=== PATIENT | male | born 1950 | race Hispanic/Latino ===

== ENCOUNTER 2021-11-28 18:43 | Inpatient (IN) | payer OTHER, MEDICARE ==
[~2021-11-28] VITALS: Ht 162.6 cm; Wt 56.5 kg
[2021-11-28 20:01] LABS: BASOPHILS % (AUTO) 0.1 % (0.0-5.0); EOSINOPHILS % (AUTO) 0.1 % (0.0-8.0); HEMATOCRIT 40.8 % (42-54); LYMPHOCYTES % (AUTO) 1.6 % (21.0-51.0); MEAN CORPUSCULAR HGB CONC 34.1 g/dL (32.0-36.0); MEAN CORPUSCULAR VOLUME 87.9 fL (79-99); MONOCYTES % (AUTO) 4.1 % (3.0-13.0); NEUTROPHILS % (AUTO) 93.5 % (40.0-77.0); PLATELET COUNT (AUTO) 371 K/uL (130-400); RED BLOOD CELL COUNT(AUTO) 4.64 MIL/uL (4.50-6.20); RED CELL DISTRIBUTION WIDTH 17.1 % (11.0-15.5); WHITE BLOOD COUNT (AUTO) 17.5 K/uL (4.8-10.8)
[2021-11-28 20:19] LABS: CREATININE 2.5 mg/dL (0.5-1.5); POTASSIUM 5.6 mmol/L (3.5-5.1); TOTAL PROTEIN, SERUM 6.6 g/dL (6.0-8.3)
[2021-11-28 20:25] LABS: ALBUMIN 2.1 g/dL (3.5-5.0)
[2021-11-28 20:36] LABS: APPEARANCE,URINE CLEAR (CLEAR); BILIRUBIN,URINE 1 mg/dL (NEGATIVE); COLOR,URINE DARK-YELLOW (YELLOW); GLUCOSE, URINE (UA) NEGATIVE (NEGATIVE); KETONES,URINE 20 mg/dL (NEGATIVE); LEUKOCYTE ESTERASE ,URINE 25 Leu/uL (NEGATIVE); NITRATE,URINE NEGATIVE (NEGATIVE); OCCULT BLOOD,URINE NEGATIVE (NEGATIVE); PROTEIN,URINE 10 mg/dL (NEGATIVE); UROBILINOGEN,URINE 12 mg/dL (0.2-1.0)
[2021-11-28 20:44] LABS: BACTERIA,URINE RARE /HPF (None Seen); MUCUS,URINE MOD LPF (None Seen); SQUAMOUS EPITHELIAL CELL,UR RARE /HPF (0-2)
[2021-11-28] MEDS ORDERED: 0.9%NACL 1000ML 1,000 ML IV ONE (21:00)
[2021-11-28] MEDS ORDERED: ACETAMINOPHEN 325 MG TAB PO PRN (22:00)
[2021-11-28] MEDS ORDERED: IPRATROPIUM/ALBUTEROL SULFATE 3 ML SOLUTION IH PRN (22:00)
[2021-11-28] MEDS ORDERED: 0.9%NACL 1000ML 1,000 ML IV SCH (22:00)
[2021-11-28] MEDS ORDERED: ONDANSETRON 4MG INJ IV PRN (22:00)
[2021-11-28] MEDS ORDERED: DEXTROSE 50%-WATER 50 ML DISP.SYRIN IV ONE (22:00)
[2021-11-28] MEDS ORDERED: NITROGLYCERIN 0.4 MG SL TAB SL PRN (22:00)
[2021-11-28] MEDS ORDERED: INSULIN HUMULIN R 100 UNIT/ML 3ML IV ONE (22:00)
[2021-11-28] MEDS: CEFTRIAXONE 1G VIAL IV SCH (22:22)
[2021-11-28] MEDS: 0.9%NACL 1000ML 1,000 ML IV SCH (23:33)
[2021-11-29] MEDS ORDERED: 0.9%NACL 1000ML 1,000 ML IV SCH
[2021-11-29] MEDS: ACETAMINOPHEN 325 MG TAB PO PRN (02:03)
[2021-11-29 05:30] VITALS: BP 103/69
[2021-11-29 05:33] LABS: BASOPHILS % (AUTO) 0.1 % (0.0-5.0); HEMATOCRIT 37.2 % (42-54); LYMPHOCYTES % (AUTO) 3.5 % (21.0-51.0); MEAN CORPUSCULAR HEMOGLOBIN 29.7 pg (27.0-33.0); MEAN CORPUSCULAR HGB CONC 33.6 g/dL (32.0-36.0); MEAN CORPUSCULAR VOLUME 88.4 fL (79-99); MONOCYTES % (AUTO) 4.7 % (3.0-13.0); NEUTROPHILS % (AUTO) 91.2 % (40.0-77.0); PLATELET COUNT (AUTO) 332 K/uL (130-400); RED BLOOD CELL COUNT(AUTO) 4.21 MIL/uL (4.50-6.20); RED CELL DISTRIBUTION WIDTH 17.1 % (11.0-15.5); WHITE BLOOD COUNT (AUTO) 16.8 K/uL (4.8-10.8)
[2021-11-29 05:59] LABS: ALBUMIN 1.8 g/dL (3.5-5.0); CREATININE 2.2 mg/dL (0.5-1.5); MAGNESIUM 2.7 mg/dL (1.80-2.40); POTASSIUM 4.7 mmol/L (3.5-5.1); TOTAL PROTEIN, SERUM 5.8 g/dL (6.0-8.3)
[2021-11-29 07:30] VITALS: BP 98/59
[2021-11-29] MEDS: 0.9%NACL 1000ML 1,000 ML IV SCH ×2 (08:00→18:00)
[2021-11-29] MEDS: FAMOTIDINE 20MG TAB PO SCH (09:00)
[2021-11-29 11:57] VITALS: BP 105/64
[2021-11-29 13:24] LABS: CREATININE 2.2 mg/dL (0.5-1.5)
[2021-11-29] MEDS ORDERED: CLINIMIX-E4.25%AA/D5+LYT2000ML 2,000 ML IV ONE (14:00)
[2021-11-29 15:56] VITALS: BP 108/59
[2021-11-29 20:00] VITALS: BP 110/65
[2021-11-29] MEDS: CEFTRIAXONE 1G VIAL IV SCH (22:00)
[2021-11-29] MEDS: DRONABINOL 2.5 MG CAP PO SCH (22:01)
[2021-11-29 22:35] LABS: CREATININE,URINE RANDOM 155 mg/dL (30-135); SODIUM,URINE RANDOM < 14 mmol/l (40-220)
[2021-11-30] VITALS: BP 93/64
[2021-11-30 04:00] VITALS: BP 107/66
[2021-11-30 05:43] LABS: HEMATOCRIT 38.1 % (42-54); MEAN CORPUSCULAR HEMOGLOBIN 29.9 pg (27.0-33.0); MEAN CORPUSCULAR HGB CONC 33.3 g/dL (32.0-36.0); MEAN CORPUSCULAR VOLUME 89.6 fL (79-99); RED BLOOD CELL COUNT(AUTO) 4.25 MIL/uL (4.50-6.20); RED CELL DISTRIBUTION WIDTH 17.3 % (11.0-15.5); WHITE BLOOD COUNT (AUTO) 12.1 K/uL (4.8-10.8)
[2021-11-30 06:07] LABS: MAGNESIUM 2.7 mg/dL (1.80-2.40); PHOSPHORUS 2.7 mg/dL (2.5-4.9)
[2021-11-30 07:51] VITALS: BP 101/72
[2021-11-30] MEDS: FAMOTIDINE 20MG TAB PO SCH (08:48)
[2021-11-30 09:16] LABS: ALBUMIN 1.8 g/dL (3.5-5.0); CREATININE 1.4 mg/dL (0.5-1.5); POTASSIUM 4.2 mmol/L (3.5-5.1); TOTAL PROTEIN, SERUM 5.9 g/dL (6.0-8.3)
[2021-11-30] MEDS: ACETAMINOPHEN 325 MG TAB PO PRN (12:02)
[2021-11-30 12:08] VITALS: BP 108/69
[2021-11-30] MEDS: BALSAM PERU/CASTOR OIL 60 GM TUBE TP SCH ×2 (14:00→23:18)
[2021-11-30] MEDS: 0.9%NACL 1000ML 1,000 ML IV SCH (14:00)
[2021-11-30] MEDS ORDERED: CLINIMIX-E4.25%AA/D5+LYT2000ML 2,000 ML IV ONE (16:30)
[2021-11-30 16:55] VITALS: BP 107/70
[2021-11-30 20:00] VITALS: BP 105/64
[2021-11-30] MEDS: DRONABINOL 2.5 MG CAP PO SCH (21:00)
[2021-11-30] MEDS: CEFTRIAXONE 1G VIAL IV SCH (23:17)
[2021-12-01] VITALS (7 sets, daily range): BP systolic 98–139; BP diastolic 58–76
[2021-12-01 08:57] LABS: INR 1.05 (0.85-1.15); PROTHROMBIN TIME 11.4 SEC (9.6-11.6)
[2021-12-01 08:58] LABS: PARTIAL THROMBOPLASTIN TIME 29.1 SEC (26.3-35.5)
[2021-12-01] MEDS: 0.9%NACL 1000ML 1,000 ML IV SCH (10:00)
[2021-12-01] MEDS: ACETAMINOPHEN 325 MG TAB PO PRN (12:43)
[2021-12-01] MEDS: FAMOTIDINE 20MG TAB PO SCH (12:45)
[2021-12-01] MEDS: BALSAM PERU/CASTOR OIL 60 GM TUBE TP SCH ×3 (12:46→22:07)
[2021-12-01] MEDS ORDERED: CLINIMIX-E4.25%AA/D5+LYT2000ML 2,000 ML IV ONE (22:00)
[2021-12-01] MEDS: DRONABINOL 2.5 MG CAP PO SCH (22:04)
[2021-12-01] MEDS: CEFTRIAXONE 1G VIAL IV SCH (22:38)
[2021-12-02 03:31] VITALS: BP 123/66
[2021-12-02 05:27] LABS: HEMATOCRIT 36.2 % (42-54); MEAN CORPUSCULAR HEMOGLOBIN 29.8 pg (27.0-33.0); MEAN CORPUSCULAR HGB CONC 33.7 g/dL (32.0-36.0); MEAN CORPUSCULAR VOLUME 88.5 fL (79-99); RED BLOOD CELL COUNT(AUTO) 4.09 MIL/uL (4.50-6.20); RED CELL DISTRIBUTION WIDTH 17.8 % (11.0-15.5); WHITE BLOOD COUNT (AUTO) 17.8 K/uL (4.8-10.8)
[2021-12-02 05:44] LABS: POTASSIUM 5.1 mmol/L (3.5-5.1)
[2021-12-02 08:00] VITALS: BP 95/55
[2021-12-02] MEDS: BALSAM PERU/CASTOR OIL 60 GM TUBE TP SCH ×3 (09:00→21:46)
[2021-12-02] MEDS: 0.9%NACL 1000ML 1,000 ML IV SCH ×2 (09:42→16:00)
[2021-12-02] MEDS: FAMOTIDINE 20MG TAB PO SCH (09:42)
[2021-12-02 12:00] VITALS: BP 105/68
[2021-12-02 16:00] VITALS: BP 126/74
[2021-12-02 19:52] VITALS: BP 103/63
[2021-12-02] MEDS: PREDNISONE 10 MG TABLET PO SCH (21:45)
[2021-12-02] MEDS: DRONABINOL 2.5 MG CAP PO SCH (21:45)
[2021-12-02] MEDS: CEFTRIAXONE 1G VIAL IV SCH (21:48)
[2021-12-02] MEDS ORDERED: CLINIMIX-E4.25%AA/D5+LYT2000ML 2,000 ML IV ONE (22:00)
[2021-12-02 23:33] VITALS: BP 126/81
[2021-12-03 03:44] VITALS: BP 123/67
[2021-12-03 05:30] LABS: HEMATOCRIT 34.5 % (42-54); MEAN CORPUSCULAR HEMOGLOBIN 29.5 pg (27.0-33.0); MEAN CORPUSCULAR VOLUME 89.1 fL (79-99); PLATELET COUNT (AUTO) 194 K/uL (130-400); RED BLOOD CELL COUNT(AUTO) 3.87 MIL/uL (4.50-6.20); RED CELL DISTRIBUTION WIDTH 18.2 % (11.0-15.5); WHITE BLOOD COUNT (AUTO) 17.1 K/uL (4.8-10.8)
[2021-12-03 05:46] LABS: CREATININE 0.9 mg/dL (0.5-1.5); POTASSIUM 5.8 mmol/L (3.5-5.1)
[2021-12-03 06:13] LABS: PLATELET MORPHOLOGY PLT CLUMPS PRESENT
[2021-12-03 09:28] VITALS: BP 111/62
[2021-12-03] MEDS: FAMOTIDINE 20MG TAB PO SCH (11:23)
[2021-12-03] MEDS: PREDNISONE 10 MG TABLET PO SCH ×3 (11:23→22:10)
[2021-12-03] MEDS: BALSAM PERU/CASTOR OIL 60 GM TUBE TP SCH ×3 (11:24→22:10)
[2021-12-03 12:00] VITALS: BP 110/69
[2021-12-03 16:00] VITALS: BP 105/59
[2021-12-03 20:01] VITALS: BP 110/64
[2021-12-03] MEDS: DRONABINOL 2.5 MG CAP PO SCH ×2 (21:00→22:10)
[2021-12-03] MEDS ORDERED: CLINIMIX-E4.25%AA/D5+LYT2000ML 2,000 ML IV SCH (21:00)
[2021-12-03] MEDS: CEFTRIAXONE 1G VIAL IV SCH (22:10)
[2021-12-04 00:03] VITALS: BP 108/64
[2021-12-04 03:57] VITALS: BP 102/62
[2021-12-04 08:00] VITALS: BP 118/60
[2021-12-04] MEDS: FAMOTIDINE 20MG TAB PO SCH (09:49)
[2021-12-04] MEDS: PREDNISONE 10 MG TABLET PO SCH ×2 (09:49→21:38)
[2021-12-04] MEDS: BALSAM PERU/CASTOR OIL 60 GM TUBE TP SCH ×3 (09:50→21:39)
[2021-12-04 12:00] VITALS: BP 113/62
[2021-12-04 16:00] VITALS: BP 98/68
[2021-12-04] MEDS ORDERED: SODIUM ZIRCONIUM CYCLOSILICATE 5 GM POWD.PACK PO SCH (16:30)
[2021-12-04] MEDS ORDERED: CLINIMIX-E4.25%AA/D5+LYT2000ML 2,000 ML IV SCH (20:00)
[2021-12-04 20:50] VITALS: BP 124/76
[2021-12-04] MEDS: DRONABINOL 2.5 MG CAP PO SCH (21:39)
[2021-12-04] MEDS: CEFTRIAXONE 1G VIAL IV SCH (22:00)
[2021-12-05] VITALS (7 sets, daily range): BP systolic 101–123; BP diastolic 61–85
[2021-12-05 05:05] LABS: PROTHROMBIN TIME 10.9 SEC (9.6-11.6)
[2021-12-05 08:07] LABS: HEMATOCRIT 35.5 % (42-54); MEAN CORPUSCULAR HEMOGLOBIN 30.4 pg (27.0-33.0); MEAN CORPUSCULAR HGB CONC 33.5 g/dL (32.0-36.0); MEAN CORPUSCULAR VOLUME 90.6 fL (79-99); RED BLOOD CELL COUNT(AUTO) 3.92 MIL/uL (4.50-6.20); RED CELL DISTRIBUTION WIDTH 18.8 % (11.0-15.5); WHITE BLOOD COUNT (AUTO) 12.2 K/uL (4.8-10.8)
[2021-12-05 08:40] LABS: ALBUMIN 1.2 g/dL (3.5-5.0); TOTAL PROTEIN, SERUM 5.3 g/dL (6.0-8.3)
[2021-12-05] MEDS: PREDNISONE 10 MG TABLET PO SCH ×2 (08:41→21:41)
[2021-12-05] MEDS: FAMOTIDINE 20MG TAB PO SCH (08:41)
[2021-12-05 08:43] LABS: POTASSIUM 6.3 mmol/L (3.5-5.1)
[2021-12-05] MEDS: BALSAM PERU/CASTOR OIL 60 GM TUBE TP SCH ×2 (08:45→21:42)
[2021-12-05] MEDS ORDERED: NA ZIRCON CYCLOSIL(LOKELMA 10GM) PO SCH (12:30)
[2021-12-05] MEDS: CEFTRIAXONE 1G VIAL IV SCH (21:41)
[2021-12-05] MEDS: DRONABINOL 2.5 MG CAP PO SCH (21:41)
[2021-12-06 04:23] VITALS: BP 107/56
[2021-12-06 07:22] VITALS: BP 103/73
[2021-12-06 08:57] LABS: BASOPHILS % (AUTO) 0.2 % (0.0-5.0); HEMATOCRIT 37.4 % (42-54); MEAN CORPUSCULAR HGB CONC 34.2 g/dL (32.0-36.0); MEAN CORPUSCULAR VOLUME 87.8 fL (79-99); MONOCYTES % (AUTO) 7.3 % (3.0-13.0); NEUTROPHILS % (AUTO) 88.7 % (40.0-77.0); PLATELET COUNT (AUTO) 273 K/uL (130-400); RED BLOOD CELL COUNT(AUTO) 4.26 MIL/uL (4.50-6.20); RED CELL DISTRIBUTION WIDTH 18.8 % (11.0-15.5); WHITE BLOOD COUNT (AUTO) 11.1 K/uL (4.8-10.8)
[2021-12-06 09:04] LABS: POTASSIUM 5.6 mmol/L (3.5-5.1)
[2021-12-06] MEDS: FAMOTIDINE 20MG TAB PO SCH (09:58)
[2021-12-06] MEDS: PREDNISONE 10 MG TABLET PO SCH (09:58)
[2021-12-06] MEDS: BALSAM PERU/CASTOR OIL 60 GM TUBE TP SCH ×2 (09:58→14:11)
[2021-12-06] MEDS ORDERED: NA ZIRCON CYCLOSIL(LOKELMA 10GM) PO NR (13:00)
[2021-12-06] MEDS ORDERED: PHARMACY COMMUNICATION MISC SCH (13:00)
== END 2021-12-06 14:30 | DRG 871 ==
LOC: EDH 18:43 → EDHIP 21:47 → 3DH 11-29 05:09
PROVIDERS: ADMIT Hospitalist; ATTEND Hospitalist
DX: A41.9 Sepsis, unspecified organism (principal); E43 Unspecified severe protein-calorie malnutrition; R65.21 Severe sepsis with septic shock; N17.9 Acute kidney failure, unspecified; N39.0 Urinary tract infection, site not specified; E87.1 Hypo-osmolality and hyponatremia; R64 Cachexia; R19.09 Other intra-abdominal and pelvic swelling, mass and lump; L89.152 Pressure ulcer of sacral region, stage 2; R16.0 Hepatomegaly, not elsewhere classified; Z66 Do not resuscitate; Z51.5 Encounter for palliative care; R62.7 Adult failure to thrive; N18.9 Chronic kidney disease, unspecified; E87.5 Hyperkalemia; E86.0 Dehydration; D64.9 Anemia, unspecified; Z20.822 Contact with and (suspected) exposure to COVID-19; Z68.21 Body mass index [BMI] 21.0-21.9, adult; Z80.0 Family history of malignant neoplasm of digestive organs
CPT/HCPCS: 36415; 71045; 71250; 74176; 76770; 78306; 80048; 80053; 81001; 82040; 82105; 82378; 82550; 82565; 82570; 82948; 83605; 83735; 83874; 83880; 84100; 84132; 84134; 84145; 84153; 84155; 84295; 84300; 84484; 85025; 85027; 85610; 85651; 85730; 86140; 86304; 86316; 87040; 87088; 87635; 93005; 93971; 97039; A9503; G0378; J0696; J1815; J3490; J7070; J7512; Q0167